=== PATIENT | female | born 1965 | race Caucasian/White ===

== ENCOUNTER 2022-01-24 14:00 | Emergency (ER) | payer MEDICARE, SELFPAY ==
--- NOTE | ~2022-01-24 | XR_ITS ---
EXAMINATION: XR knee LT min 4V DATE: 01/24/2022 14:34 INDICATION: Anteromedial left knee pain post fall TECHNIQUE: Anteroposterior, 2 oblique, sunrise and crosstable lateral views of the left knee were obt ained COMPARISON: None. FINDINGS: Nondisplaced fracture along the anterior lower pole of the patella which does not appear to extend to the articular cortex. No other fractures identified. Alignment remains essentially anatomic. No join t effusion/layering lipohemarthrosis. Prepatellar soft tissue swelling. IMPRESSION: 1. Nondisplaced likely extra articular fracture at the anterior lower pole of the patella. Reviewed, dictated and finalized at location A. IMPRESSION: 1. Nondisplaced likely extra articular fracture at the anterior lower pole of t he patella.
--- NOTE | 2022-01-24 14:02 | ED.LOWEXIN ---
HPI - Extremity Injury (Lower) General Chief Complaint: Extremity Injury, Lower Stated Complaint: left knee injury Time Seen by Provider: 01/24/22 14:02 Source: patient and RN notes reviewed History of Present Illness HPI Narrative: Patient is a 56-year-old female who presents the urgent care with complaints of left injury after falling yesterday. Patient states that she fell forward onto pebble concrete gravel. Patient has kept the knee elevated with the use of ice and taking her prescription hydrocodone as needed for pain. Patient did hit her chin and has a notable bruise to the left side. Otherwise denies of any other injuries. No other acute complaints. No acute distress noted. Patient aware of the plan of care. Some parts of this dictation were generated by voice recognition software and may contain typographical and/or grammatical inaccuracies. Related Data Home Medications Medication Instructions Recorded Confirmed alprazolam 0.25 mg PO BID 01/24/22 01/24/22 amlodipine 5 mg PO HS 01/24/22 01/24/22 aspirin [[facility] Aspirin] 81 mg PO DAILY 01/24/22 01/24/22 cholecalciferol (vitamin D3) 25 mcg PO DAILY 01/24/22 01/24/22 [Vitamin D3] gabapentin 800 mg PO TID 01/24/22 01/24/22 hydrocodone-acetaminophen 1 tablet PO Q4H PRN 01/24/22 01/24/22 levothyroxine 75 mcg PO DAILY 01/24/22 01/24/22 mecobalamin (vitamin B12) 1,000 mcg SUBLINGUAL DAILY 01/24/22 01/24/22 omeprazole 20 mg PO DAILY 01/24/22 01/24/22 pravastatin 20 mg PO DAILY 01/24/22 01/24/22 sertraline 100 mg PO DAILY 01/24/22 01/24/22 tizanidine 4 mg PO Q8H PRN 01/24/22 01/24/22 trazodone 50 mg PO HS 01/24/22 01/24/22 triamterene 50 mg PO DAILY 01/24/22 01/24/22 Allergies Allergy/AdvReac Type Severity Reaction Status Date / Time No Known Allergies Allergy Unknown Verified 01/24/22 14:29 Review of Systems Review of Systems: CONSTITUTIONAL: Denies fever, chills, or sweats. EYES: Denies visual changes, redness, or discharge. ENT: Denies rhinorrhea, congestion, sore throat, or otalgia. CARDIOVASCULAR: Denies chest pain, palpitations, or edema. RESPIRATORY: Denies cough or dyspnea. GASTROINTESTINAL: Denies abdominal pain, nausea, vomiting, or diarrhea. GENITOURINARY: Denies dysuria or hematuria. SKIN: Denies rash or itching. MUSCULOSKELETAL: Denies back pain, joint pain, or myalgia. NEUROLOGIC: Denies headache, numbness, or weakness. All other systems reviewed are negative, except as documented in HPI. PMFSH Comments At the time of my signature, I reviewed and agree with the nursing past medical, surgical, social, and family history. There is no relevant family history pertinent to the patient complaint. Exam Narrative: GENERAL: This is a well-nourished, well-developed patient, in no apparent distress. HEAD: normocephalic, atraumatic. EYES: PERRL. Sclera clear/white. Vision is grossly intact. EARS: External ears normal NOSE: External nose normal with no obvious nasal discharge, nares without redness, no rhinorrhea. THROAT: Mucous membranes moist NECK: Neck supple CARDIOVASCULAR: Regular rate and rhythm without murmurs, gallops, or rubs. RESPIRATORY: Clear to auscultation. Breath sounds equal bilaterally. No wheezes, rales, or rhonchi. SKIN: 3 x 3 cm area of ecchymosis to the left chin, unopened/no abrasion. Warm, intact with no suspicious lesions or rash, good texture and turgor. NEURO: awake, alert, and oriented to person, place and time. There were no obvious focal neurologic abnormalities. EXTREMITIES: Mild to moderate anterior to medial right patella tenderness without obvious deformity. Range of motion not tested due to pain. Positive strong right pedal pulse with capillary refill less than 2 seconds. Course Course Level of Care: Express Care Visit Vital Signs Vital signs: Vital Signs Temperature 98.9 F 01/24/22 14:14 Pulse Rate 72 01/24/22 14:14 Respiratory Rate 20 01/24/22 14:14 Blood Pressure 137/82 01/24/22 14:14 Pulse
[2022-01-24 14:14] VITALS: BP 137/82; PULSE 72; RESP 20; TEMP 37.2; O2SAT 100
== END 2022-01-24 15:05 | disposition home or self-care (01) ==
PROVIDERS: Emergency Provider Nurse Practitioner Family; PCP Internal Medicine
DX: S82.001A Unspecified fracture of right patella, initial encounter for closed fracture (principal); W19.XXXA Unspecified fall, initial encounter
CPT/HCPCS: 73564; 99214; G0463; L1830

== ENCOUNTER 2023-02-19 11:03 | Emergency (ER) | payer MEDICARE, SELFPAY ==
--- NOTE | ~2023-02-19 | XR_ITS ---
XR finger 2nd RT min 2V DATE: 02/19/2023 11:21 INDICATION: Slammed distal right second digit yesterday. Pain. TECHNIQUE: 4 views COMPARISON: None FINDINGS: No fracture or dislocation, periosteal reaction or bone destruction, radiopaque soft tissue foreign body or subcutaneous emphysema. IMPRESSION: No fracture or dislocation Reviewed, dictated and finalized at location L. IMPRESSION: No fracture or dislocation
[2023-02-19 11:10] VITALS: BP 120/70; PULSE 60; RESP 18; TEMP 36.7; O2SAT 100
--- NOTE | 2023-02-19 11:33 | ED.WOUNDLAC ---
HPI - Wound/Laceration General Chief Complaint: Extremity Injury, Upper Stated Complaint: Finger Injury Time Seen by Provider: 02/19/23 11:22 Source: patient Mode of arrival: ambulatory Limitations: no limitations History of Present Illness HPI narrative: Patient presents today complaining of an injury to her right 2nd finger. She smashed her finger in the hinge of a door last night at 5:00 p.m.. Mild tingling to the finger. She has 2 lacerations to the finger. She cleaned them and dressing with Neosporin and a Band-Aid. She currently rates her pain 8/10 and has been taking her home [place] without much relief. Patient is not up-to-date on her tetanus vaccine. Related Data Home Medications Medication Instructions Recorded Confirmed alprazolam 0.25 mg tablet 0.25 mg PO BID 01/24/22 02/19/23 amlodipine 5 mg tablet 5 mg PO HS 01/24/22 02/19/23 aspirin 81 mg chewable tablet 81 mg PO DAILY 01/24/22 02/19/23 cholecalciferol (vitamin D3) 25 25 mcg PO DAILY 01/24/22 02/19/23 mcg (1,000 unit) capsule (Vitamin D3) gabapentin 800 mg tablet 800 mg PO TID 01/24/22 02/19/23 hydrocodone 10 mg-acetaminophen 1 tablet PO Q4H PRN pain 01/24/22 02/19/23 325 mg tablet levothyroxine 75 mcg tablet 75 mcg PO DAILY 01/24/22 02/19/23 mecobalamin (vitamin B12) 1,000 1,000 mcg sublingual DAILY 01/24/22 02/19/23 mcg disintegrating tablet,sublingual omeprazole 20 mg tablet,delayed 20 mg PO DAILY 01/24/22 02/19/23 release pravastatin 20 mg tablet 20 mg PO DAILY 01/24/22 02/19/23 sertraline 100 mg tablet 100 mg PO DAILY 01/24/22 02/19/23 tizanidine 4 mg tablet 4 mg PO Q8H PRN pain 01/24/22 02/19/23 trazodone 50 mg tablet 50 mg PO HS 01/24/22 02/19/23 triamterene 50 mg capsule 50 mg PO DAILY 01/24/22 02/19/23 Allergies Allergy/AdvReac Type Severity Reaction Status Date / Time No Known Allergies Allergy Unknown Verified 02/19/23 11:07 Review of Systems Review of Systems: CONSTITUTIONAL: Denies body aches, fever, chills, or sweats. EYES: Denies visual changes, redness, or discharge. ENT: Denies rhinorrhea, congestion, sore throat, or otalgia. CARDIOVASCULAR: Denies chest pain, palpitations, or edema. RESPIRATORY: Denies cough or dyspnea. GASTROINTESTINAL: Denies abdominal pain, nausea, vomiting, or diarrhea. GENITOURINARY: Denies dysuria or hematuria. SKIN: Denies rash, itching, or wounds. MUSCULOSKELETAL: + finger injury NEUROLOGIC: Denies headache, numbness, tingling, or weakness. PSYCH: Denies depression or anxiety. PMFSH Comments At time of signature, I have reviewed and agree with nursing past medical, surgical, social and family history unless otherwise noted. Please see nursing chart for further information. There is no relevant family history pertinent to the presenting complaint Exam Narrative: GENERAL: Well-appearing, well-nourished, and in no acute distress. HEAD: Normocephalic, atraumatic. EYES: EOMI. No redness or drainage. Conjunctivae normal. ENT: Mucous membranes pink and moist. NECK: Normal AROM. CHEST: No respiratory distress. EXTREMITIES: Right 2nd finger: 1.5 cm and superficial flap laceration to the ulnar side of finger, middle phalanx. No active bleeding. Less than 0.5 cm superficial flap laceration to the dorsal aspect of the finger, middle phalanx. Distal sensation intact. Capillary refill normal. Full AROM of the finger. SKIN: Warm, dry, no rash. Capillary refill normal. Normal skin turgor. NEURO: No focal deficits. Alert and oriented x3. Gait steady. PSYCH: Normal affect. No signs of depression or anxiety. Course Course Level of Care: Express Care Visit Vital Signs Vital signs: Vital Signs Temperature 98.1 F 02/19/23 11:10 Pulse Rate 60 02/19/23 11:10 Respiratory Rate 18 02/19/23 11:10 Blood Pressure 120/70 02/19/23 11:10 Pulse Oximetry 100 02/19/23 11:10 Temperature 98.1 F 02/19/23 11:10 Pulse Rate 60 02/19/23 11:10 Respiratory Rate 18
== END 2023-02-19 11:45 | disposition home or self-care (01) ==
PROVIDERS: Emergency Provider Nurse Practitioner
DX: S61.210A Laceration without foreign body of right index finger without damage to nail, initial encounter (principal); X58.XXXA Exposure to other specified factors, initial encounter
CPT/HCPCS: 29130; 73140; 99213; G0463